=== PATIENT | female | born 1965 | race Caucasian/White ===

== ENCOUNTER → 2016-10-27 | Day surgery (SDC) | payer OTHER ==
[2016-10-17 07:55] VITALS: Ht 170.2 cm; Wt 104.5 kg
--- NOTE | 2016-10-24 11:46 | HISTORY & PHYSICAL EXAMINATION ---
DATE OF ADMISSION: 10/27/2016 CHIEF COMPLAINT: Pelvic pain, recurrent abnormal Pap smears and abnormal transvaginal ultrasound. HISTORY OF PRESENT ILLNESS: The patient is a 51-year-old 10, para 3. She has got multiple medical problems, chronic fatigue syndrome, she is hypothyroid, she has allergies, she has polycystic ovarian cysts syndrome, depression, asthma. She has MTHFR deficiency for which she is being treated with folic acid. She is on multiple medications, the more significant ones include Cymbalta, Synthroid, propranolol, Wellbutrin, metformin and Dulera. She previously had heavy vaginal bleeding with clotting. She has been on Depo-Provera for 4 years, has not had a period during that time; however, she complains of pelvic pain, present for a year and a half, getting progressively worse. She states that she gets pain and cramps at the time she normally would get her menses.This pain is unresponsive to nonnarcotic pain relievers. She also has abnormal Pap smears for years, since approximately 2003, she has been evaluated multiple times and has had several colposcopically directed biopsies which just confirmed low grade Pap smear and still the Pap tractor sweeper driver still come back abnormal. She is presently being scheduled for an outpatient hysteroscopy, D&C and conization. PAST MEDICAL HISTORY: ALLERGIES: SHE IS ALLERGIC TO CODEINE, SULFA, DAIRY PRODUCTS. PAST SURGICAL HISTORY: She has had 4 D&Cs and she had her left ankle had surgery on it. MEDICAL HISTORY: She has hypothyroidism, polycystic ovarian disease, depression, asthma and MTHFR disease. SOCIAL HISTORY: No smoking. No history of abnormal alcohol intake. She is unemployed. FAMILY HISTORY: She is adopted. She got 3 children in good health. REVIEW OF SYSTEMS: She does complain of migraine headaches. PHYSICAL EXAMINATION: GENERAL: Well-developed, well-nourished 51-year-old female, alert, oriented x3 and cooperative in no acute distress, appears stated age. EYES: Conjunctivae are pink, sclerae white, no evidence of jaundice. EARS: Had normal light reflex bilaterally. NOSE: Had normal mucosa. Septum is midline. There were no polyps. THROAT: No erythema or evidence of infection. Teeth are in good state of repair. HEAD: Normocephalic, normal distribution of hair. NECK: Supple. Trachea midline. Thyroid is not enlarged. There is no adenopathy appreciated. Both carotids are of good intensity. CHEST: Clear to auscultation and percussion. No wheezes, rales or rhonchi appreciated. HEART: Regular rhythm. S1 and S2 are normal. BREASTS: Normal. ABDOMEN: Soft and nontender. LUNGS: Clear to auscultation and percussion. PELVIC: Revealed a normal-appearing cervix. Her uterus was mildly enlarged, anteverted. There were no adnexal masses appreciated. MUSCULOSKELETAL: Revealed no calf tenderness. IMPRESSIONS OF THIS CASE: Hypothyroidism, polycystic ovarian disease, asthma, chronic fatigue syndrome, methylene tetrahydrofolate reductase deficiency, pelvic pain, abnormal transvaginal ultrasound showing thickened endometrium and uterine fibroids. MTDD
[2016-10-24 13:28] LABS: BASO % 0.4 %; BASO ABS # 0.04 K/uL (0-0.2); COMPLETE YES; EOS % 1.5 %; HEMATOCRIT 40.5 % (37-47); IG% 0.1 %; LYMPH % 22.4 %; LYMPH ABS # 2.06 K/uL (1.2-3.4); MEAN CORPUSCULAR HEMOGLOBIN 29.5 pg (25-34); MEAN CORPUSCULAR HGB CONC 33.1 g/dl (32-36); MEAN PLATELET VOLUME 9.9 fL (7.4-10.4); MONO % 8.4 %; NEUT % 67.2 %; PLATELET COUNT 366 K/uL (130-400); RED BLOOD COUNT 4.55 M/uL (4.2-5.4); WHITE BLOOD COUNT 9.18 K/uL (4.8-10.8)
[2016-10-24 13:51] LABS: PREG INTERNAL NEGATIVE QC NEG CLEAR BACKGROUND; PREG INTERNAL POSITIVE QC POS CONTROL LINE
[~2016-10-27] VITALS: Ht 170.2 cm; Wt 104.5 kg
[~2016-10-27] MED LIST: ATROPINE SULFATE 0.1 MG/ML 5ML SYR IV PRN; BIOT1CAP8 PO; BUPR-79 PO; CHOL2000 PO; CLR10 PO; CYAN100020 PO; DEXAMETHASONE SOD INJ 4 MG/ML VIAL IV PRN; DEXAMETHASONE SOD INJ 4 MG/ML VIAL ONE; DULO60CA44 PO; EpHEDrine SULFATE INJ 50 MG/ML AMP IV PRN; FENTANYL CITRATE INJ 50 MCG/1 ML 2 ML VIAL IV PRN; FENTANYL CITRATE INJ 50 MCG/1 ML 2 ML VIAL ONE; FERR325T5 PO; FLV1 PO; GABA-113 PO; GLYCOPYRROLATE INJ 0.2 MG/ML VIAL ONE; IBUPROFEN 600 MG TAB PO PRN; IODINE SOLN STRONG 14 ML ONE; KETOROLAC TROMETHAMINE 30 MG/ML VIAL IV. PRN; KETOROLAC TROMETHAMINE 30 MG/ML VIAL ONE; LABETALOL HCL IV 5 MG/ML 20ML IV PRN; LACTATED RINGER'S 1000ML 1,000 ML IV SCH; LEVO125T4 PO; LIDOCAINE HCL 2% 2 ML VIAL (20MG/ML) ONE; LIDOCAINE/EPINEPHRINE 1% INJ 50 ML VIAL ONE; LMS250 PO; METF500T5 PO; METOCLOPRAMIDE HCL INJ 5 MG/ML 2 ML VIAL IV PRN; MIDAZOLAM HCL 1 MG/ML 2ML VIAL ONE; MOME200A INH; MoRPHine SULFATE 10 MG/ML CARP/VIAL IV PRN; NAPR-1168 PO; ONDANSETRON INJ 2 MG/ML 2 ML VIAL IV PRN; ONDANSETRON INJ 2 MG/ML 2 ML VIAL ONE; PANT1TAB48 PO; PHENYLEPHRINE 100MCG/ML 5ML SYR IV PRN; PROP40TA5 PO; PROPOFOL IV EMULSION 10 MG/ML 20 ML VIAL IV ONE; SODIUM CHLORIDE 0.9% 1000ML 1,000 ML IV SCH; VNTHFA/IN INH
--- NOTE | 2016-10-27 06:53 | History & Physical Bridge Note ---
H&P Re-Evaluation Bridge Note: I have examined the patient, reviewed the History & Physical and in the interval since the performance of the History & Physical I have noted the following changes of clinical significance: No changes noted
--- NOTE | 2016-10-27 08:04 | [facility] Operative Report ---
Operative Report Operative Date Oct 27, 2016. Pre-Operative Diagnosis Persistent Cervical Dysplasia, Pelvic Pain, Fibroid Post-Operative Diagnosis Same Procedure(s) Performed D&C, Hysteroscopy, Conization Surgeon Dr. Dumont Runway Model Surgeon(s) None Estimated Blood Loss 50 ml Findings endometrial adhesions uterus sounded to 8 cm Specimens A.) Endometrial Curettings B.) Cervical Cone (Suture @ 12:00) Complication(s) None Disposition Recovery Room / PACU Description of Procedure hysteroscopy dilatation of cervix sharp curettage endometrial cavity conization of the cervix I attest to the content of the Intraoperative Record and any orders documented therein. Any exceptions are noted below.
--- NOTE | 2016-10-27 08:06 | Discharge Instructions-SurgCtr ---
Discharge Instructions Date of Service Oct 27, 2016. Visit Reason for Visit: Persistent Cervical Dysplasia, Pelvic Pain, Fibroi Discharge Discharge Diagnosis / Problem: endometrial adhesions Discharge Goals Goal(s): Improve function, Learn about illness Activity Recommendations Activity Limitations: as noted below ACTIVITY RECOMMENDATIONS: * Avoid tampons, douching, hot tubs, pools, and intercourse until bleeding has stopped. * May shower as usual. * No strenuous activity for 24-48 hours. After 24-48 hours, you may do anything you feel like doing (driving and sports are okay). SPECIAL CARE INSTRUCTIONS: Special Diet: * Mild nausea may occur in the immediate post-operative period. * Take clear liquids such as tea, cola or bouillon until all nausea has subsided; you may then resume your normal diet. Special Care: * Light bleeding and vaginal spotting can last from a few days to 3-4 weeks. Call your doctor if bleeding becomes heavier than the heaviest part of your period. * Check your temperature twice a day for one week. If it goes above 100.4 degrees Fahrenheit (38.0 Celsius), notify your doctor. * Call your doctor's office for an appointment for 6 weeks after your surgery. FOLLOW-UP VISIT: Call your doctor's office for an appointment for 6 weeks after your surgery. Anesthesia . Post Anesthesia Instructions: If you have had General Anesthesia or IV Sedation: * Do not drive today. * Resume driving when surgeon permits. * Do not make important decisions or sign legal documents today. * Call surgeon for: 1. Temperature elevations greater than 101 degrees F. 2. Uncontrollable pain. 3. Excessive bleeding. 4. Persistent nausea and vomiting. 5. Medication intolerance (nausea, vomiting or rash). * For nausea and vomiting use only clear liquids such as: tea, soda, bouillon until nausea subsides, then gradually increase diet as tolerated. * If you have any concerns or questions, call your surgeon's office. If physician is unavailable and it is an emergency, call 911 or go to the nearest emergency room. . Diet Recommendations Home Diet: resume previous diet Procedures Procedures Performed: D&C, Hysteroscopy, Conization Pending Studies Studies pending at discharge: no Medical Emergencies . Who to Call and When: Medical Emergencies: If at any time you feel your situation is an emergency, please call 911 immediately. . Non-Emergent Contact Non-Emergency issues call your: Baton Twirler Call Non-Emergent contact if: temperature is above 100.5 . . "Provider Documentation" section prepared by Archie Dumont. .
[2016-10-27 09:06] VITALS: TEMP 36.3
[2016-10-27 09:29] VITALS: BP 146/96; PULSE 90; O2SAT 100
--- NOTE | 2016-10-27 09:34 | Anesthesia Progress Nt - [facility] ---
Anesthesia Post Op Note Date & Time Oct 27, 2016 at 09:33 Vital Signs Pain Intensity: 0 Vital Signs Past 12 Hours Date Time Temp Pulse Resp B/P (MAP) Pulse Ox O2 Delivery O2 Flow Rate FiO2 10/27/16 09:29 90 16 146/96 (113) 100 Room Air 10/27/16 09:06 36.3 92 16 158/110 (126) 99 Room Air 10/27/16 09:00 132/94 10/27/16 08:59 36.4 93 16 132/94 97 Room Air 10/27/16 08:59 95 13 10/27/16 08:59 94 13 97 10/27/16 08:58 150/101 10/27/16 08:56 139/100 10/27/16 08:54 100 19 10/27/16 08:54 101 19 98 10/27/16 08:51 137/98 10/27/16 08:49 99 16 97 10/27/16 08:49 99 16 10/27/16 08:46 136/99 10/27/16 08:44 99 14 10/27/16 08:44 100 14 96 10/27/16 08:41 158/99 10/27/16 08:39 103 9 99 10/27/16 08:39 103 9 10/27/16 08:36 132/98 10/27/16 08:34 101 10 98 10/27/16 08:34 101 10 10/27/16 08:31 126/91 10/27/16 08:29 101 16 100 10/27/16 08:29 101 16 10/27/16 08:26 138/97 10/27/16 08:24 104 11 94 10/27/16 08:24 104 11 10/27/16 08:21 133/89 10/27/16 08:19 99 6 100 10/27/16 08:19 99 6 10/27/16 08:16 126/89 10/27/16 08:14 105 16 99 10/27/16 08:14 105 16 10/27/16 08:13 107 19 10/27/16 08:13 106 19 99 10/27/16 08:11 136/90 10/27/16 08:08 102 17 99 10/27/16 08:08 102 17 10/27/16 08:06 135/95 10/27/16 08:05 140/113 10/27/16 08:04 159/114 10/27/16 08:03 36.4 108 12 99 Mask 6 10/27/16 06:33 36.6 80 16 148/108 (121) 100 Room Air Notes Mental Status: alert / awake / arousable, participated in evaluation Pt Amnestic to Procedure: Yes Nausea / Vomiting: adequately controlled Pain: adequately controlled Airway Patency, RR, SpO2: stable & adequate BP & HR: stable & adequate Hydration State: stable & adequate Anesthetic Complications: no major complications apparent
--- NOTE | 2016-11-04 13:18 | EDITING REQUIRED CODING QUERY ---
CODING QUERY To promote full compliance with coding requirements relating to patient care, provider participation is requested in all cases of auditing coder uncertainty. Please assist us with the question(s) below: Coding Question(s): The operative report on file does not contain the details of the procedure that is needed to code. Could you please dictate the details of this procedure below, or add and addendum to the report that already exists, once available? Physician's Response(s): RECURRENT ABNORMAL PAP SMEARS UNRESPONSIVE TO CONSERVATIVE TREATMENT Thank you Nathalia Zamudio Principal Diagnosis: "_that condition established after study, to be chiefly responsible for occasioning the admission of the patient to the hospital for care." Co-Existing Principal Diagnosis: "_when two or more diagnoses equally meet the criteria for principal diagnosis as determined by the circumstances of admission, diagnostic work up, and/or therapy provided, and the Alphabetic Index, Tabular List, or another coding guideline does not provide sequencing direction, any one of the diagnoses may be sequenced first." "When the physician has documented what appears to be a current diagnosis in the body of the record, but has not included the diagnosis in the final diagnostic statement, the physician should be asked whether the diagnosis should be added." ([facility] 2 QTR90. p3-4)
--- NOTE | 2016-12-08 14:24 | EDITING REQUIRED CODING QUERY ---
OPERATIVE NOTE NEEDED The operative note dictated on 10/27/16 is lacking the details of the procedure necessary for coding purposes. Please provide an addendum with the full operative note for this procedure below, by providing a dictation or an addendum to the operative note: DESCRIPTION OF PROCEDURE:conization of cervix Dilatation of cervix sharp curettage of endometrial cavity Thank you for your assistance, Angelica Maldonado - [employer] Installer
--- NOTE | 2016-12-20 16:09 | OPERATIVE REPORT ---
DATE OF OPERATION: 10/27/2016 PREOPERATIVE DIAGNOSES: Persistent cervical dysplasia on Pap smears, pelvic pain, and fibroids. POSTOPERATIVE DIAGNOSES: Same. Pathology pending. PROCEDURE: D&C, hysteroscopy and conization. SURGEON: Dr. Dumont. AIR TRAFFIC COORDINATOR: None. ESTIMATED BLOOD LOSS: 50 mL. FINDINGS: Endometrial adhesions. Uterus sounded to 8 cm. COMPLICATIONS: None. DISPOSITION: Recovery room. OPERATIVE PROCEDURE: The patient was brought to the OR table, correctly identified by armband and conversation. General anesthesia was administered. Perineum and vagina were painted with Betadine paint and draped in the usual sterile fashion. Catheter was used to empty the bladder. Careful pelvic exam under anesthesia revealed a top normal size uterus. There were no adnexal masses appreciated. A weighted speculum was placed in the posterior vagina. Anterior lip of the cervix grasped with single tooth tenaculum. Uterus was sounded to 8 cm. Cervix was dilated with graduated dilators and then a hysteroscope with normal saline distention medium was inserted into the uterine cavity. The endometrial cavity was distended. There was noted to be endometrial adhesions and the ostia were identified on the left side. Following the hysteroscopy, the scope was removed. A small sharp serrated curet was used to thoroughly and systematically curette out the endometrial cavity. This was productive of a small amount of endometrial curettings, all of which was submitted for pathological evaluation. Attention was now turned to doing a conization. Two sutures of heavy Vicryl were placed on the cervix at 3 o'clock and 9 o'clock and these were used for traction purposes to bring the cervix down into view. The cervix itself was infiltrated with local with epinephrine, injections were placed at 7 o'clock, at 10 o'clock, at 12 o'clock, at 2 o'clock, and at 5 o'clock on the cervix. Once the cervix blanched, we used an iodine solution to paint the cervix to identify the transformation zone. The iodine solution consisted of Lugol solution. Then, a cold knife was used to make a 360-degree circular incision around the cervix, starting at 6 o'clock on the cervix and continuing all the way around back to the starting point at 6 o'clock. Then, the specimen was grabbed with an Allis and the upper portion was cut free with [place] scissors. A tag was placed at 12 o'clock to identify the position on the cervix and the specimen was sent for pathological evaluation. Storm door sutures of heavy Vicryl were then placed at 12 o'clock, 3 o'clock, 6 o'clock, and 9 o'clock. After the sutures were placed and tied, the endocervical canal itself was packed with hemostatic material of Surgicel. Hemostasis was now excellent. The patient tolerated the procedure well and left the OR in good condition. I attest to the content of the Intraoperative Record and any orders documented therein. Any exception s are noted below.
== END | disposition home or self-care (01) ==
LOC: X.SURG 06:17
PROVIDERS: ATTEND Obstetrics & Gynecology
DX: N87.1 Moderate cervical dysplasia (principal); D25.9 Leiomyoma of uterus, unspecified; I10 Essential (primary) hypertension; J45.909 Unspecified asthma, uncomplicated; E11.9 Type 2 diabetes mellitus without complications; Z88.0 Allergy status to penicillin; E66.9 Obesity, unspecified; E03.9 Hypothyroidism, unspecified; Z68.36 Body mass index [BMI] 36.0-36.9, adult; Z88.2 Allergy status to sulfonamides; Z88.5 Allergy status to narcotic agent; Z79.899 Other long term (current) drug therapy; E28.2 Polycystic ovarian syndrome

== ENCOUNTER → 2017-02-11 | Outpatient (CLI) | payer OTHER ==
[~2017-02-11] MED LIST changes: -ATROPINE SULFATE 0.1 MG/ML 5ML SYR IV PRN; -DEXAMETHASONE SOD INJ 4 MG/ML VIAL IV PRN; -DEXAMETHASONE SOD INJ 4 MG/ML VIAL ONE; -EpHEDrine SULFATE INJ 50 MG/ML AMP IV PRN; -FENTANYL CITRATE INJ 50 MCG/1 ML 2 ML VIAL IV PRN; -FENTANYL CITRATE INJ 50 MCG/1 ML 2 ML VIAL ONE; -GLYCOPYRROLATE INJ 0.2 MG/ML VIAL ONE; -IBUPROFEN 600 MG TAB PO PRN; -IODINE SOLN STRONG 14 ML ONE; -KETOROLAC TROMETHAMINE 30 MG/ML VIAL IV. PRN; -KETOROLAC TROMETHAMINE 30 MG/ML VIAL ONE; -LABETALOL HCL IV 5 MG/ML 20ML IV PRN; -LACTATED RINGER'S 1000ML 1,000 ML IV SCH; -LIDOCAINE HCL 2% 2 ML VIAL (20MG/ML) ONE; -LIDOCAINE/EPINEPHRINE 1% INJ 50 ML VIAL ONE; -METOCLOPRAMIDE HCL INJ 5 MG/ML 2 ML VIAL IV PRN; -MIDAZOLAM HCL 1 MG/ML 2ML VIAL ONE; -MoRPHine SULFATE 10 MG/ML CARP/VIAL IV PRN; -ONDANSETRON INJ 2 MG/ML 2 ML VIAL IV PRN; -ONDANSETRON INJ 2 MG/ML 2 ML VIAL ONE; -PHENYLEPHRINE 100MCG/ML 5ML SYR IV PRN; -PROPOFOL IV EMULSION 10 MG/ML 20 ML VIAL IV ONE; -SODIUM CHLORIDE 0.9% 1000ML 1,000 ML IV SCH
== END | disposition home or self-care (01) ==
LOC: C.LAB 14:28
PROVIDERS: ATTEND Obstetrics & Gynecology
DX: N76.6 Ulceration of vulva (principal)

== ENCOUNTER → 2017-05-19 | Outpatient (CLI) | payer OTHER ==
[~2017-05-19] MED LIST changes: -LEVO125T4 PO; +LEVO125T5 PO; +PANT1TAB3 PO; -PANT1TAB48 PO
== END | disposition home or self-care (01) ==
LOC: C.PAPS 15:15
PROVIDERS: ATTEND Obstetrics & Gynecology
DX: R93.8 Abnormal findings on diagnostic imaging of other specified body structures (principal); R87.610 Atypical squamous cells of undetermined significance on cytologic smear of cervix (ASC-US); Z11.51 Encounter for screening for human papillomavirus (HPV)

== ENCOUNTER → 2017-08-10 | Outpatient (CLI) | payer OTHER | END | disposition home or self-care (01) | LOC: C.PAPS 15:45 | PROVIDERS: ATTEND Obstetrics & Gynecology | DX: R87.612 Low grade squamous intraepithelial lesion on cytologic smear of cervix (LGSIL) (principal); R87.820 Cervical low risk human papillomavirus (HPV) DNA test positive ==